=== PATIENT | male | born 1950 | race Caucasian/White ===

== ENCOUNTER 2020-05-31 13:13 | Emergency (ER) | payer MEDICARE, OTHER ==
[~2020-05-31 13:13] MED LIST: ALLOPURINOL100 MG PO; AMARYL2 MG PO; ASCORBIC ACID500 MG PO; ASPIRIN CHEWABL81 MG PO; ASPIRIN EC81 MG PO; ATENOLOL50 MG PO; ATIVAN1 MG PO; ATORVASTATIN CA40 MG PO; AUGMENTIN 875-1 EACH PO; COZAAR100 MG PO; DIGITEK125 MCG PO; FLOMAX 0.4 MG0.4 MG PO; GABAPENTIN800 MG PO; HCTZ12.5 MG PO; LEXAPRO 10MG TA10 MG PO; LIPITOR40 MG PO; LOPRESSOR25 MG PO; LORAZEPAM1 MG PO; LOSARTAN-HCTZ1 EAC1 PO; LOVAZA1 GM PO; METFORMIN HCL1000 MG PO; METOPROLOL SUCC50 MG PO; MILK THISTLE175 M1 PO; MILK THISTLE500 MG PO; NITROQUIK SL0.4 MG SL; NORTRIPTYLINE H75 MG PO; NORVASC5 MG PO; OSTEO BI-FLEX1 EAC1 PO; PHENERGAN25 M1 PO; PLAVIX75 MG PO; POTASSIUM PO; PRILOSEC20 MG PO; PROBIOTIC PO; PROBIOTIC1 EAC1 PO; PROTONIX 40MG T40 MG PO; TAMSULOSIN HCL0.4 MG PO; TENORMIN50 MG PO; TOPROL XL50 MG PO; TRAMADOL HCL50 MG PO; UROCIT-K10 MEQ PO; VIBRAMYCIN100 MG PO; VIT D3 PO; VITAMIN B-121000 MC1 SL; VITAMIN D2000 UNI1 PO
[2020-05-31 15:47] LABS: BASOPHIL 0.7 % (0-2); EOSINOPHIL 2.4 % (0-7); HGB 12.9 g/dl (13.2-18.0); LYMPHOCYTE 18.4 % (15-48); MCH 30.9 pg (25.0-31.0); MCHC 32.3 g/dL (32.0-36.0); MCV 95.7 fL (78.0-100.0); MONOCYTE 5.3 % (0-12); MPV 11.9 fL (6.0-9.5); NEUTROPHIL 72.8 % (41-80); NRBC 0; PLT 152 K/uL (150-400); RBC 4.18 M/uL (4.70-6.00); RDW 12.9 % (11.5-14.0); WBC 7.2 K/uL (4.0-10.5)
[2020-05-31 15:58] LABS: INR 1.2 (0.9-1.2); PROTHROMBIN TIME 14.4 SECONDS (11.4-13.6)
[2020-05-31 16:19] LABS: PRO-BNP 1511 pg/mL (<125)
[2020-05-31 16:23] LABS: ALBUMIN 3.4 g/dL (3.4-5.0); BILIRUBIN - TOTAL 0.5 mg/dL (0.2-1.0); BUN/CREAT RATIO (CALC) 8.5 RATIO; C-REACTIVE PROTEIN 0.7 mg/dL (<=0.90); CREATININE 1.18 mg/dL (0.67-1.17); GLOBULIN (CALCULATION) 3.8 g/dL; POTASSIUM 4.3 mmol/L (3.5-5.1); TOTAL PROTEIN 7.2 g/dL (6.4-8.2)
== END 2020-05-31 17:09 | disposition home or self-care (01) ==
LOC: FER 13:13
PROVIDERS: Emergency Medicine
DX: I49.3 Ventricular premature depolarization (principal); Z95.1 Presence of aortocoronary bypass graft; Z95.5 Presence of coronary angioplasty implant and graft; Z98.890 Other specified postprocedural states; Z87.891 Personal history of nicotine dependence; Z79.01 Long term (current) use of anticoagulants; Z79.899 Other long term (current) drug therapy
CPT/HCPCS: 36415; 80053; 82728; 83615; 83880; 84443; 84484; 85025; 85610; 86140; 93005

== ENCOUNTER → 2021-01-11 | Day surgery (SDC) | payer MEDICARE, OTHER ==
[~2021-01-11] VITALS: Ht 170.2 cm; Wt 84.1 kg
[~2021-01-11] MED LIST changes: +ARICEPT 5MG TABL5 MG PO; +COREG12.5 MG PO; +ELIQUIS5 MG PO; +HYDRALAZINE25 MG PO; +LASIX20 MG PO; +LOSARTAN POTASS50 MG PO
== END | disposition home or self-care (01) ==
LOC: FAS 07:17
DX: Z12.11 Encounter for screening for malignant neoplasm of colon (principal); K57.30 Diverticulosis of large intestine without perforation or abscess without bleeding; Z80.0 Family history of malignant neoplasm of digestive organs; Z95.1 Presence of aortocoronary bypass graft; Z95.5 Presence of coronary angioplasty implant and graft; Z79.01 Long term (current) use of anticoagulants; F41.9 Anxiety disorder, unspecified; I25.10 Atherosclerotic heart disease of native coronary artery without angina pectoris; I50.9 Heart failure, unspecified; J44.9 Chronic obstructive pulmonary disease, unspecified; F32.9 Major depressive disorder, single episode, unspecified; E78.00 Pure hypercholesterolemia, unspecified; E11.51 Type 2 diabetes mellitus with diabetic peripheral angiopathy without gangrene; Z88.0 Allergy status to penicillin; K21.9 Gastro-esophageal reflux disease without esophagitis
CPT/HCPCS: G0105; J2704; J7120

== ENCOUNTER 2021-05-09 16:47 | Emergency (ER) | payer MEDICARE, OTHER ==
[2021-05-09] MEDS ORDERED: COREG25 MG PO (17:43)
[2021-05-09 19:25] LABS: BASOPHIL 0.7 % (0-2); EOSINOPHIL 3.1 % (0-7); HCT 39.2 % (42.0-52.0); HGB 12.7 g/dl (13.2-18.0); LYMPHOCYTE 19.5 % (15-48); MCH 30.6 pg (25.0-31.0); MCHC 32.4 g/dL (32.0-36.0); MCV 94.5 fL (78.0-100.0); MONOCYTE 6.7 % (0-12); MPV 13.1 fL (6.0-9.5); NEUTROPHIL 69.9 % (41-80); NRBC 0; RBC 4.15 M/uL (4.70-6.00); RDW 13.1 % (11.5-14.0); WBC 6.9 K/uL (4.0-10.5)
[2021-05-09 19:26] LABS: PLT 147 K/uL (150-400)
[2021-05-09 19:36] LABS: BILIRUBIN - TOTAL 0.5 mg/dL (0.2-1.0); BUN/CREAT RATIO (CALC) 13.3 RATIO; CREATININE 1.05 mg/dL (0.67-1.17); GLOBULIN (CALCULATION) 4.1 g/dL; TOTAL PROTEIN 8.1 g/dL (6.4-8.2)
[2021-05-09] MEDS ORDERED: HCTZ12.5 MG PO (20:23)
== END 2021-05-09 20:38 | disposition home or self-care (01) ==
LOC: FER 16:47
PROVIDERS: Emergency Medicine Emergency Medical Services
DX: I10 Essential (primary) hypertension (principal); E11.9 Type 2 diabetes mellitus without complications; Z86.73 Personal history of transient ischemic attack (TIA), and cerebral infarction without residual deficits; Z79.01 Long term (current) use of anticoagulants
CPT/HCPCS: 36415; 80053; 84484; 85025; 93005

== ENCOUNTER 2021-08-23 18:48 | Emergency (ER) | payer MEDICARE, OTHER ==
[~2021-08-23 18:48] MED LIST changes: +COREG25 MG PO
[2021-08-23] MEDS ORDERED: AMOX TR-K CLV1 EAC4 PO (23:13)
== END 2021-08-23 23:30 | disposition home or self-care (01) ==
LOC: FER 18:48
DX: R04.0 Epistaxis (principal); I25.10 Atherosclerotic heart disease of native coronary artery without angina pectoris; I10 Essential (primary) hypertension; E11.9 Type 2 diabetes mellitus without complications; Z79.01 Long term (current) use of anticoagulants; Z95.1 Presence of aortocoronary bypass graft
CPT/HCPCS: C9046